=== PATIENT | female | born 1985 | race Two or more races ===

== ENCOUNTER 2017-06-10 20:31 | Emergency (ER) | payer BC, OTHER ==
[~2017-06-10] VITALS: Ht 165.1 cm; Wt 114.3 kg
[~2017-06-10 20:31] MED LIST: PRO AIR
[2017-06-10 21:26] LABS: Basophils # (auto) 0.1 uL; Basophils % (auto) 0.6 % (0.0-2.0); Eosinophils # (auto) 0.5 uL; Eosinophils % (auto) 5.9 % (0.0-7.0); Hematocrit 37.9 % (36.0-46.0); Lymphocytes # (auto) 2.6 uL; Lymphocytes % (auto) 28.3 % (10.0-50.0); Mean Corpuscular Hemoglobin 30.2 pg (28.0-32.0); Mean Corpuscular Hgb Conc. 34.2 g/dL (32.0-36.0); Mean Corpuscular Volume 88.1 fL (80.0-100.0); Mean Platelet Volume 8.5 fL (6.9-10.8); Monocytes # (auto) 0.7 uL; Monocytes % (auto) 8.1 % (0.0-12.0); Neutrophils # (auto) 5.3 uL; Neutrophils % (auto) 57.1 % (37.0-80.0); Platelet Count (auto) 224 10^3/uL (140-450); Red Cell Distribution Width 12.8 % (11.8-14.3); White Blood Cell 9.2 10^3/uL (4.4-10.8)
[2017-06-10 21:40] LABS: Urine Bilirubin Negative (Negative); Urine Blood 2+ /uL (Negative); Urine Color Yellow (Yellow); Urine Glucose Normal (Normal); Urine Ketone 1+ (Negative); Urine Mucus FEW (None Seen); Urine Nitrite Negative (Negative); Urine RBC 14 /hpf (0 - 4); Urine Squamous Epithelial Cell MOD /hpf (<5)
[2017-06-10 21:51] LABS: Albumin 3.2 g/dL (3.4-5.0); Bilirubin, Total 0.2 mg/dL (0.2-1.0); Calcium 8.1 mg/dL (8.5-10.1); Potassium 3.5 mmol/L (3.5-5.1); Total Protein 7.5 g/dL (6.4-8.2)
[2017-06-10 22:28] LABS: INR 0.94 (0.9-1.15); Partial Thromboplastin Time 25.2 sec (22.64-33.71); Prothrombin Time 10.2 sec (9.37-12.3)
[2017-06-10 23:13] VITALS: BP 110/75
== END 2017-06-11 00:48 | disposition home or self-care (01) ==
LOC: ER 20:36
DX: O20.0 Threatened abortion (principal); Z3A.11 11 weeks gestation of pregnancy
CPT/HCPCS: 36415; 76801; 80053; 81001; 84702; 85025; 85610; 85730; 86850; 86900; 86901

== ENCOUNTER 2018-10-23 08:54 | Emergency (ER) | payer OTHER ==
[~2018-10-23] VITALS: Ht 165.1 cm; Wt 128.4 kg
[2018-10-23 09:50] LABS: Basophils # (auto) 0.1 uL; Basophils % (auto) 0.6 % (0.0-2.0); Eosinophils # (auto) 0.5 uL; Eosinophils % (auto) 4.3 % (0.0-7.0); Hematocrit 42.4 % (36.0-46.0); Hemoglobin 14.3 g/dL (12.2-16.2); Lymphocytes # (auto) 2.1 uL; Mean Corpuscular Hgb Conc. 33.6 g/dL (32.0-36.0); Mean Corpuscular Volume 83.4 fL (80.0-100.0); Monocytes # (auto) 0.6 uL; Monocytes % (auto) 5.5 % (0.0-12.0); Neutrophils # (auto) 8.3 uL; Neutrophils % (auto) 71.6 % (37.0-80.0); Platelet Count (auto) 300 10^3/uL (140-450); Red Blood Cells 5.09 10^6/uL (4.0-5.20); Red Cell Distribution Width 13.9 % (11.8-14.3); White Blood Cell 11.6 10^3/uL (4.4-10.8)
[2018-10-23 09:55] LABS: Urine Bacteria FEW /hpf (None Seen); Urine Blood 1+ /uL (Negative); Urine Hyaline Cast FEW /lpf (0 - 2); Urine Mucus FEW (None Seen); Urine Specific Gravity 1.023 (1.001-1.035); Urine WBC 6 /hpf (0 - 5)
[2018-10-23 10:07] LABS: Albumin 3.6 g/dL (3.4-5.0); Calcium 8.2 mg/dL (8.5-10.1); Potassium 3.9 mmol/L (3.5-5.1)
[2018-10-23 10:11] LABS: BUN/Creatinine Ratio 14.3
[2018-10-23 10:13] LABS: Bilirubin, Total 0.4 mg/dL (0.2-1.0); Total Protein 8.8 g/dL (6.4-8.2)
[2018-10-23] MEDS ORDERED: cefTRIAXone 1GM/50ML D5W 50 ML IV ONE (12:45)
[2018-10-23] MEDS ORDERED: SODIUM CHLORIDE 0.9% 1,000 ML IV ONE ×2 (12:49)
[2018-10-23] MEDS ORDERED: metroNIDAZOLE 500MG/100ML 100 ML IV ONE (13:00)
[2018-10-23] MEDS ORDERED: MORPHINE SULFATE 4 MG/ML SYR/VIAL IV ONE (15:15)
[2018-10-23] MEDS ORDERED: ONDANSETRON HCL 4 MG/2 ML VIAL IV ONE (15:15)
[2018-10-23 18:05] VITALS: BP 99/61
== END 2018-10-23 18:42 | disposition short-term general hospital (02) ==
LOC: ER 08:54
DX: K51.00 Ulcerative (chronic) pancolitis without complications (principal); N39.0 Urinary tract infection, site not specified
CPT/HCPCS: 36415; 74176; 80053; 81001; 81025; 85025; 96365; 96368; 96375; 99285; J0696; J2270; J2405; J3490; J7030